=== PATIENT | male | born 1975 | race Caucasian/White ===

== ENCOUNTER 2021-09-07 15:14 | Inpatient (IN) | payer OTHER ==
[~2021-09-07] VITALS: Ht 182.9 cm; Wt 109.8 kg
[2021-09-07 18:00] LABS: BASOPHILS % 0.4 % (0.0-2.0); EOSINOPHILS % 0.3 % (0.0-5.0); HEMOGLOBIN. 15.6 g/dL (14.0-18.0); LYMPHOCYTES % 17.7 % (20.0-50.0); MEAN CORPUSCULAR HEMOGLOBIN 29.4 pg (28.0-32.0); MEAN CORPUSCULAR VOLUME 88.4 fL (80.0-94.0); MEAN PLATELET VOLUME 7.2 fl (7.4-10.4); MONOCYTES % 4.8 % (2.0-8.0); NEUTROPHILS % 76.8 % (40.0-76.0); PLATELET 330 x1000/uL (130-400); RED BLOOD CELL COUNT 5.32 mill/uL (4.7-6.1); RED CELL DISTRIBUTION WIDTH 13.2 % (11.6-14.6)
[2021-09-07 18:12] LABS: CHLORIDE 105 mEq/L (98-107)
[2021-09-07] MEDS ORDERED: ASPIRIN 81MG TABLET PO NR (19:45)
[2021-09-07] MEDS ORDERED: IOHEXOL-350 100 ML BOTTLE ONE (19:48)
[2021-09-07] MEDS ORDERED: DIPHENHYDRAMINE 50MG/ML VIAL IV PRN (21:00)
[2021-09-07] MEDS ORDERED: ENOXAPARIN 40MG/0.4ML SYR SUBCUT SCH (21:00)
[2021-09-07] MEDS ORDERED: ACETAMINOPHEN 325MG TABLET PO PRN (21:00)
[2021-09-07] MEDS ORDERED: ONDANSETRON HCL 4MG/2ML INJ IV PRN (21:00)
[2021-09-07] MEDS: ENOXAPARIN 30MG/0.3ML SYR SUBCUT SCH (21:00)
[2021-09-07] MEDS ORDERED: DOCUSATE SODIUM 100MG CAPSULE PO PRN (21:00)
[2021-09-07] MEDS ORDERED: HYDRALAZINE 20MG/ML VIAL IV PRN (21:00)
[2021-09-07] MEDS ORDERED: MAGNESIUM/ALUMINUM HYDROXIDE/SIMETHICONE 30ML UDC PO PRN (21:00)
[2021-09-07] MEDS ORDERED: HYDROCODONE/ACETAMINOPHEN 5/325MG TABLET PO PRN (21:00)
[2021-09-07] MEDS ORDERED: NALOXONE HCL 0.4MG/ML VIAL IV PRN (21:00)
[2021-09-07] MEDS ORDERED: CLONIDINE 0.1MG TABLET PO PRN (21:00)
[2021-09-07] MEDS ORDERED: IPRATROPIUM/ALBUTEROL 0.5-3(2.5)MG/3ML NEB HHN PRN (21:00)
[2021-09-07] MEDS ORDERED: GUAIFENESIN 200MG/10ML SUGAR FREE UDC PO PRN (21:00)
[2021-09-07] MEDS ORDERED: LORAZEPAM 2MG/ML CPJ IV PRN (21:00)
[2021-09-07] MEDS: SODIUM CHLORIDE 0.9% INJ 3ML FLUSH IVF SCH (21:56)
[2021-09-07 23:30] LABS: CREATINE KINASE 63 IU/L (39-308); CREATINE KINASE MB FRACTION < 1.0 ng/mL (0.5-3.6)
[2021-09-07 23:50] VITALS: BP 138/78
[2021-09-08 04:00] VITALS: BP 122/74
[2021-09-08] MEDS: SODIUM CHLORIDE 0.9% INJ 3ML FLUSH IVF SCH ×3 (05:12→20:17)
[2021-09-08 06:36] LABS: BASOPHILS % 0.3 % (0.0-2.0); EOSINOPHILS % 0.3 % (0.0-5.0); HEMATOCRIT. 43.2 % (42.0-52.0); HEMOGLOBIN. 14.7 g/dL (14.0-18.0); LYMPHOCYTES % 10.9 % (20.0-50.0); MEAN CORPUSCULAR HEMOGLOBIN 29.7 pg (28.0-32.0); MEAN CORPUSCULAR VOLUME 87.2 fL (80.0-94.0); MEAN PLATELET VOLUME 7.4 fl (7.4-10.4); MONOCYTES % 5.2 % (2.0-8.0); NEUTROPHILS % 83.3 % (40.0-76.0); PLATELET 290 x1000/uL (130-400); RED BLOOD CELL COUNT 4.95 mill/uL (4.7-6.1); RED CELL DISTRIBUTION WIDTH 13.4 % (11.6-14.6)
[2021-09-08 07:19] LABS: CHLORIDE 107 mEq/L (98-107)
[2021-09-08 07:35] LABS: CREATINE KINASE 72 IU/L (39-308); CREATINE KINASE MB FRACTION < 1.0 ng/mL (0.5-3.6)
[2021-09-08 08:00] VITALS: BP 130/75
[2021-09-08] MEDS: ENOXAPARIN 30MG/0.3ML SYR SUBCUT SCH ×2 (08:17→20:16)
[2021-09-08 11:38] VITALS: BP 128/79
[2021-09-08] MEDS: ASPIRIN 81MG EC TABLET PO SCH (13:46)
[2021-09-08] MEDS: MORPHINE SULFATE 2 MG/ML CPJ (NOT FOR IM USE) IV PRN ×2 (15:26→17:29)
[2021-09-08 16:00] VITALS: BP 125/77
[2021-09-08] MEDS ORDERED: NITROGLYCERIN 0.4MG TABLET SL SL PRN (16:15)
[2021-09-08 20:00] VITALS: BP 129/77
[2021-09-09] VITALS: BP 124/68
[2021-09-09 04:00] VITALS: BP 134/72
[2021-09-09] MEDS: SODIUM CHLORIDE 0.9% INJ 3ML FLUSH IVF SCH ×3 (05:23→20:08)
[2021-09-09 08:00] VITALS: BP 126/81
[2021-09-09] MEDS: ASPIRIN 81MG EC TABLET PO SCH (08:23)
[2021-09-09] MEDS: ENOXAPARIN 30MG/0.3ML SYR SUBCUT SCH ×2 (08:24→20:08)
[2021-09-09] MEDS ORDERED: REGADENOSON 0.4 MG/5 ML IV SCH (10:30)
[2021-09-09 12:00] VITALS: BP 134/84
[2021-09-09 16:00] VITALS: BP 156/84
[2021-09-09] MEDS ORDERED: CAND4TAB PO (16:36)
[2021-09-09] MEDS: ATACAND 4 MG PO SCH (17:55)
[2021-09-09 20:00] VITALS: BP 121/78
[2021-09-10] VITALS: BP 114/64
[2021-09-10 04:00] VITALS: BP 125/73
[2021-09-10] MEDS: SODIUM CHLORIDE 0.9% INJ 3ML FLUSH IVF SCH (05:48)
[2021-09-10 08:00] VITALS: BP 119/77
[2021-09-10] MEDS: ASPIRIN 81MG EC TABLET PO SCH (09:38)
[2021-09-10] MEDS: ENOXAPARIN 30MG/0.3ML SYR SUBCUT SCH (09:39)
[2021-09-10] MEDS: ATACAND 4 MG PO SCH (09:39)
[2021-09-10] MEDS ORDERED: LIDOCAINE HCL 1% 10 MG/ML 10ML VIAL ONE (11:45)
[2021-09-10] MEDS ORDERED: MIDAZOLAM HCL 2 MG/2 ML VIAL ONE (11:45)
[2021-09-10] MEDS ORDERED: IODIXANOL 320MG/ML 100 ML BOTTLE IV ONE (11:45)
[2021-09-10] MEDS ORDERED: FENTANYL CITRATE/PF 50MCG/ML 2ML VIAL ONE (11:45)
[2021-09-10] MEDS ORDERED: HEPARIN 1000 UNITS/ML 10ML ONE (11:45)
[2021-09-10] MEDS ORDERED: ATROPINE SULFATE 1MG/10ML SYR ONE (12:40)
[2021-09-10] MEDS ORDERED: ATROPINE SULFATE 1MG/10ML SYR IV PRN (13:00)
[2021-09-10] MEDS ORDERED: ACETAMINOPHEN 325MG TABLET PO PRN (13:00)
[2021-09-10 16:00] VITALS: BP 113/70
[2021-09-10 16:23] VITALS: BP 113/70
== END 2021-09-10 17:48 | disposition home or self-care (01) | DRG 287 ==
LOC: ER 15:14 → 8WST 19:39 → ENRESERV 20:16 → CANRESERV 20:16 → ENRESERV 20:42 → CANRESERV 20:42 → ENRESERV 22:31
PROVIDERS: ADMIT Internal Medicine; ATTEND Internal Medicine
PROC: B2111ZZ Fluoroscopy of Multiple Coronary Arteries using Low Osmolar Contrast (ICD-10-PCS; principal; 2021-09-10)
PROC: 4A023N7 Measurement of Cardiac Sampling and Pressure, Left Heart, Percutaneous Approach (ICD-10-PCS; 2021-09-10)
DX: R07.89 Other chest pain (principal); I10 Essential (primary) hypertension; Z20.822 Contact with and (suspected) exposure to COVID-19
CPT/HCPCS: 36415; 71045; 71275; 78452; 80048; 80053; 82550; 82553; 84443; 84484; 85025; 85379; 87426; 93005; 93017; 93306; 93458; 93970; 99285; A9500; C1769; C1887; C1893; J0461; J1644; J1650; J2060; J2250; J2270; J2785; J3010; J3490; J7040; Q9967